=== PATIENT | male | born 1975 | race Caucasian/White ===

== ENCOUNTER 2018-10-09 09:22 | Emergency (ER) | payer OTHER ==
[~2018-10-09] VITALS: Ht 180.3 cm; Wt 102.1 kg
[~2018-10-09 09:22] MED LIST: ALBUTEROL SUL5 MG/M1 IH; ALBUTEROL2.5 MG/31 IH; AMOXICILLIN 50500 M1 PO; AMOXICILLIN 50500 MG PO; ARMOUR THYROID30 M1 PO; CARAFATE 11 GM/10 M1 PO; HORMONE THERAPY; LOPRESSOR50 PO; MEDROLDOSEPACK PO; NORCO 5-325 TA1 EACH PO; PRILOSEC 20 MG20 MG PO; TOBRAMYCIN SULFA5 ML OP; VENTOLIN HFA 1818 GM INH; ZOLOFT50 MG PO; ZPAK PO
[2018-10-09] MEDS ORDERED: CELEXA20 MG PO (09:27)
[2018-10-09 10:00] LABS: ABSOLUTE NEUTROPHILS 2.7 thou/uL (1.4-8.2); BASOPHILS 1.3 % (0.0-2.0); HEMATOCRIT 43.2 % (42.0-52.0); HEMOGLOBIN 14.8 gm/dL (14.0-18.0); LYMPHOCYTES 36.5 % (24.0-44.0); MCH 28.8 pg (26.0-34.0); MCHC 34.2 g/dL (28.0-37.0); MCV 84.2 fL (80.0-100.0); MONOCYTES 6.7 % (1.0-8.0); PLATELET COUNT 195 thou/uL (150-400); POLYS 53.5 % (36.0-66.0); RBC 5.14 mil/uL (4.50-6.00); RDW 13.1 % (10.5-14.5); WBC 5.1 thou/uL (4.0-11.0)
[2018-10-09 10:05] LABS: CALCIUM 9.2 mg/dL (8.5-10.1); CREATININE 0.9 mg/dL (0.7-1.3)
[2018-10-09 10:14] LABS: TROPONIN-I 0.07 ng/mL (<0.06)
--- NOTE | 2018-10-09 15:18 | EXE ---
[facility] [place] [address] STRESS ECHOCARDIOGRAM Name: DARIANANDRE E Room #: REG LV Garcia#: [id number] ������������� Admission: 10/09/18 ������������� Attend Phys: Discharge: ��� ������������� ��� Date of : 77 Date of Service: 10/09/18 1517 �� Report #: [id number] �������� ��������������������������������������������[id number] THIS REPORT FOR: //name// APPROVED REPORT Study performed: 10/09/2018 13:53:55 Exam: Stress Echocardiogram Indication: Chest pain Patient Location: In-Patient Stress Nurse: Sherri Saunders RN Room #: 6 Ht: 5 ft 11 in HR: 73 bpm BP: 132/82 mmHg Medical History Medical History: HTN Allergies: No known drug allergies Procedure The patient underwent an Exercise Stress Test using the Ronald Protocol. Blood pressure, heart rate, and EKG were monitored. An Echocardiogram was performed by forklift technician in four stages in quad fashion. At peak stress, four selected images were obtained and placed side by side with resting images for comparison. Stress Test Details Stress Test: Exercise stress testing was performed using a Ronald protocol. HR Resting HR: 73 bpm Max Heart Rate (APMHR): 178 bpm Max HR Achieved: 123 bpm Target HR (85% APMHR): 151 bpm % of APMHR: 69 Recovery HR: 100 bpm HR response to stress: Normal HR response to stress BP Resting BP: 132/82 mmHg Max BP: 158/80 mmHg Recovery BP: 146/80 mmHg BP response to stress: Normal blood pressure response to stress. ECG Resting ECG: Sinus Rhythm [facility] [employer] [facility] [place] [address] STRESS ECHOCARDIOGRAM Name: ANDRE FARMER Room #: REG [facility]#: [id number] ������������� Admission: 10/09/18 ������������� Attend Phys: Discharge: ��� ������������� ��� Date of : 77 Date of Service: 10/09/18 1517 �� Report #: [id number] �������� ��������������������������������������������[id number] Stress ECG: Sinus Rhythm ST Change: Normal Maximum ST Deviation: 0 mm Arrhythmia: None Recovery ECG: Sinus Rhythm Recovery ST Change: Normal Recovery ST Deviation: 0 mm Recovery Arrhythmia: None Clinical Reason for Termination: Maximal effort Stress Symptoms: Leg Fatigue Exercise duration: 8 min 56 sec Highest Stage Achieved: Stage 3: 3.4 mph at 14% grade. Exercise capacity: 10.40 METs Angina Score: None Stress ECG Conclusion Clinical: Non-ischemic ECG: Non-ischemic Agee Treadmill Score is 8.0 which is Low risk. Pre-Stress Echo The resting Echocardiogram showed normal left ventricular contractility with an estimated Ejection Fraction of about 55-60%. Post-Stress Echo The stress Echocardiogram showed normal left ventricular contractility with an estimated Ejection Fraction of about >70%. Clinical Normal augmentation of myocardial wall segments using a 17 segment model. Conclusion Clinical Response: Non-ischemic Exercise Capacity: Average Stress ECG Response: Non-ischemic Stress Echo Images: Non-ischemic The left ventricle is normal in size and wall thickness in both the rest and stress images. Normal stress echocardiogram with maximal exercise stress. Other Information Study Quality: Good [facility] [address] [address] STRESS ECHOCARDIOGRAM Name: DARIANFABYAddison Grey Room #: REG [facility].#: [id number] ������������� Admission: 10/09/18 ������������� Attend Phys: Discharge: ��� ������������� ��� Date of : 77 Date of Service: 10/09/181516 �� Report #: [id number] �������� ��������������������������������������������[id number] <Conclusion> The left ventricle is normal in size and wall thickness in both the rest and stress images. Normal stress echocardiogram with maximal exercise stress. ��������������������������������������������� <ELECTRONICALLY SIGNED> ���������������������������������������� By: Peewee Ivory MD, FACC ��������������������������������������������� 10/09/181516 16 16 Peewee Ivory MD, FACC /INF
[2018-10-09 15:43] VITALS: BP 128/87
--- NOTE | 2018-10-10 08:13 | EKG ---
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 : 1975 Requested By: Jhonatan Soliz Order Number: [id number] MD: Peewee Ivory Measurements Intervals [place] Rate: 70 P: 39 NV: 188 QRS: -18 QRSD: 87 T: 4 QT: 376 QTc: 406 Interpretive Statements Sinus rhythm Early repolarization Compared to ECG 08/26/2015 16:20:31 No significant change was found Electronically Signed On 10-10-2018 8:13:49 CDT by Peewee Ivory [email or web address] ��������������������������������������������� <ELECTRONICALLY SIGNED> ���������������������������������������� By: Peewee Ivory MD, [facility] ��������������������������������������������� 10/10/18 0813 0952 0952 Peewee Ivory MD, FACC /EPI
== END 2018-10-09 15:44 | disposition home or self-care (01) ==
LOC: ER 09:22
PROVIDERS: Emergency Medicine
DX: M79.602 Pain in left arm (principal); R07.89 Other chest pain; I10 Essential (primary) hypertension; E78.5 Hyperlipidemia, unspecified; J45.909 Unspecified asthma, uncomplicated; Z90.49 Acquired absence of other specified parts of digestive tract

== ENCOUNTER 2019-07-24 14:33 | Inpatient (IN) | payer OTHER ==
[~2019-07-24] VITALS: Ht 180.3 cm; Wt 102.1 kg
[~2019-07-24 14:33] MED LIST changes: +CELEXA20 MG PO
[2019-07-24 14:45] VITALS: BP 110/84
[2019-07-24] MEDS ORDERED: ADVAIR 100-501 EACH INH (15:26)
[2019-07-24 16:27] LABS: ABSOLUTE NEUTROPHILS 6.9 thou/uL (1.4-8.2); BASOPHILS 0.7 % (0.0-2.0); EOSINOPHILS 0.3 % (0.0-3.0); HEMATOCRIT 42.4 % (42.0-52.0); HEMOGLOBIN 14.2 gm/dL (14.0-18.0); LYMPHOCYTES 21.2 % (24.0-44.0); MCH 29.2 pg (26.0-34.0); MCHC 33.4 g/dL (28.0-37.0); MCV 87.2 fL (80.0-100.0); MONOCYTES 7.3 % (1.0-8.0); PLATELET COUNT 209 thou/uL (150-400); POLYS 70.5 % (36.0-66.0); RBC 4.86 mil/uL (4.50-6.00); RDW 13.7 % (10.5-14.5); WBC 9.8 thou/uL (4.0-11.0)
[2019-07-24 16:32] LABS: CALCIUM 8.9 mg/dL (8.5-10.1); CREATININE 0.9 mg/dL (0.7-1.3); POTASSIUM 3.6 mmol/L (3.5-5.1)
[2019-07-24 16:42] LABS: ALBUMIN 3.8 g/dL (3.4-5.0); TOTAL BILIRUBIN 0.3 mg/dL (<0.1-1.0); TOTAL PROTEIN 7.4 g/dL (6.4-8.2); TROPONIN-I 0.12 ng/mL (<0.06)
[2019-07-24 19:34] VITALS: BP 125/76
[2019-07-24 19:44] VITALS: BP 125/64
[2019-07-24 20:32] VITALS: BP 151/78
[2019-07-24 23:11] VITALS: BP 137/85
--- NOTE | 2019-07-25 03:09 | NUR ---
Admission history and assessment completed. Careplan initiated. Enhanced isolation pending COVID testing. Short of air with activity but sats normal on room air. Afebrile. Vital signs and rhythm stable. Elevated troponin, cardiology consulted.
[2019-07-25 04:00] VITALS: BP 129/77
[2019-07-25 07:03] LABS: CALCIUM 8.9 mg/dL (8.5-10.1)
[2019-07-25 07:52] VITALS: BP 126/66
--- NOTE | 2019-07-25 11:32 | EKG ---
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 Compared to ECG 10/09/2018 09:52:34 Electronically Signed On 07-25-2019 11:31:32 CDT by Virgilio Mota [email or web address] <ELECTRONICALLY SIGNED> By: Virgilio Mota MD 07/25/19 1131 0756 0756 Virgilio Mota MD /EPI
--- NOTE | 2019-07-25 11:33 | EKG ---
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 NO ischemic changes. Compared to ECG 10/09/2018 09:52:34 Electronically Signed On 07-25-2019 11:32:11 CDT by Virgilio Mota [email or web address] <ELECTRONICALLY SIGNED> By: Virgilio Mota MD 07/25/19 1132 1545 1545 Virgilio Mota MD /EPI
[2019-07-25 15:44] VITALS: BP 115/50
--- NOTE | 2019-07-25 18:23 | NUR ---
ASSUMED PATIENT CARE 0700. A/O X3. ANXIOUS. NO SOB. UP AD ALEXA. PROGRESSING TOWARD POC GOALS.
[2019-07-25 20:18] VITALS: BP 129/53
--- NOTE | 2019-07-26 04:26 | NUR ---
stated that his breathing is better but not perfect. he is wondering why? i explained that the cardiology would like to continues with working him up, after his covid test comes back. he asked if he would be allowed to refuse the stress test, he is not sure he can afford to pay for the test. He asks how much tests and procedures will cost. i explained that we do not have that information and to call his insurance company. careplan reviewed. denies pain. no coughing noted by nurse, denies coughing, or headaches.
[2019-07-26 05:31] VITALS: BP 131/70
[2019-07-26 08:16] VITALS: BP 143/60
--- NOTE | 2019-07-26 14:30 | NUR ---
PATIENT RESTING IN ROOM AT THIS TIME. ALERT ORIENTED X4. STATES HE IS FEELING BETTER. RESPIRATIONS ARE NON LABORED. PLEASANT WITH CARES. DOES NOT SEEM TO BE IN PAIN AT THIS TIME. WILL CONT WITH PLAN CARE.
[2019-07-26 16:26] VITALS: BP 135/68
[2019-07-26 20:07] VITALS: BP 134/73
--- NOTE | 2019-07-26 23:22 | NUR ---
test result back covid-19 negative. reported result to the payroll coordinator, asked her if she wants to send him home tonight. the primary had told dayshift that he could go home, 07/27/19. no further orders, payroll coordinator provider would prefer if he stayed tonight and let callie see him in the morning.
--- NOTE | 2019-07-27 00:41 | NUR ---
report called to [address] [place] [address]. he is ready for transfer. pt is aware of the negative covid 19 test and is much more calm at this time.
[2019-07-27 04:00] VITALS: BP 139/78
--- NOTE | 2019-07-27 04:04 | NUR ---
breathing easy per patient report. I encouraged him to see an tapper shank regarding his hearing deficit. he is expecting to be discharged tomorrow. he is relaxed and his anxiety is much decreased.
[2019-07-27 07:22] VITALS: BP 135/68
[2019-07-27 11:25] VITALS: BP 121/71
[2019-07-27] MEDS ORDERED: ASPIR 8181 MG PO ×2 (11:34→14:11)
--- NOTE | 2019-07-27 11:34 | NUR ---
Patient admits with SOB has hx of asthma. Per care team patient anxious to dc today to be with grandmother and assist with her care. He does not want further cardiology workup and reports in past his ins did not cover per care team. Called patient in room and no answer. Patient to f/u with planned outpatient cardiology workup. Will attempt to call patient again in room
[2019-07-27] MEDS ORDERED: PEPCID AC10 MG PO ×3 (11:35→14:27)
[2019-07-27] MEDS ORDERED: PROVENTIL HFA6.7 G1 INH ×3 (11:35→14:27)
[2019-07-27] MEDS ORDERED: PREDNISONE 20 M20 M1 PO ×3 (11:35→14:27)
[2019-07-27] MEDS ORDERED: NEBULIZER MISCELL ×3 (11:43→14:27)
[2019-07-27] MEDS ORDERED: IPRAT-ALBUT 0.5-3 ML INH ×3 (11:43→14:27)
[2019-07-27 12:14] VITALS: BP 121/71
--- NOTE | 2019-07-27 13:14 | NUR ---
Sp with patient by phone. patient reports he rec workup approx 2 years ago and heart was good. patient reports ins covered stay but still out of pocket cost of $2000. He is currently paying [facility] $50 a month and approx $600 left to pay and he does not want it to return to $2000. He reports during that time he felt it was a panic attack. He reports he went to PCP 3x with asthma and not getting better. He reports prev asthma would get better in a week. He was concerned with having COVID. He was not concerned with cardiac issues. 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 He is anxious to return home to assist with her. He feels stable to leave hospital and not concerned with cardiac. Nebulizer ordered. Verified address. Reviewed company who will deliver nebulizer no further needs.
--- NOTE | 2019-07-27 15:24 | NUR ---
PT DISCHARGE INSTRUCTIONS WERE GIVEN TO PT. ALL QUESTIONS ANSWERED. PIV AND TELE WERE PREVIOUSLY DC'D. DISCHARGE INSTRUCTIONS AND EDUCATION INFORMATION SENT WITH PT. RXS WERE ELECTRONICALLY SENT TO PHARMACY. NOTE FOR WORK WAS GIVEN.
== END 2019-07-27 14:18 | disposition home or self-care (01) | DRG 203 ==
LOC: ER 14:33 → EROBS 18:52 → 2N 18:52 → 3W 20:13 → 2N 07-27 01:05
PROVIDERS: Nurse Practitioner Family; Physician Assistant; ADMIT Hospitalist
DX: J45.901 Unspecified asthma with (acute) exacerbation (principal); R79.89 Other specified abnormal findings of blood chemistry; F41.8 Other specified anxiety disorders; Z79.899 Other long term (current) drug therapy; Z90.49 Acquired absence of other specified parts of digestive tract; Z03.818 Encounter for observation for suspected exposure to other biological agents ruled out
CPT/HCPCS: 10779; 10879

== ENCOUNTER 2019-09-02 12:13 | Emergency (ER) | payer OTHER ==
[~2019-09-02] VITALS: Ht 180.3 cm; Wt 99.8 kg
[~2019-09-02 12:13] MED LIST changes: +ADVAIR 100-501 EACH INH; +ASPIR 8181 MG PO; +IPRAT-ALBUT 0.5-3 ML INH; +NEBULIZER MISCELL; +PEPCID AC10 MG PO; +PREDNISONE 20 M20 M1 PO; +PROVENTIL HFA6.7 G1 INH
[2019-09-02 13:14] LABS: RDW 13.8 % (10.5-14.5)
[2019-09-02 13:16] LABS: ABSOLUTE NEUTROPHILS 3.7 thou/uL (1.4-8.2); EOSINOPHILS 1.2 % (0.0-3.0); HEMATOCRIT 42.3 % (42.0-52.0); HEMOGLOBIN 14.4 gm/dL (14.0-18.0); LYMPHOCYTES 25.4 % (24.0-44.0); MCH 29.3 pg (26.0-34.0); MCHC 34.1 g/dL (28.0-37.0); MCV 85.9 fL (80.0-100.0); MONOCYTES 7.4 % (1.0-8.0); PLATELET COUNT 237 thou/uL (150-400); RBC 4.93 mil/uL (4.50-6.00); WBC 5.7 thou/uL (4.0-11.0)
[2019-09-02 13:25] LABS: CALCIUM 8.9 mg/dL (8.5-10.1); POTASSIUM 3.8 mmol/L (3.5-5.1)
[2019-09-02 13:31] LABS: ALBUMIN 4.1 g/dL (3.4-5.0); TOTAL BILIRUBIN 0.4 mg/dL (<0.1-1.0); TOTAL PROTEIN 7.7 g/dL (6.4-8.2)
[2019-09-02] MEDS ORDERED: DOXYCYCLINE 10100 MG PO ×2 (15:11→15:16)
[2019-09-02] MEDS ORDERED: PREDNISONE 10 M10 M1 PO ×2 (15:11→15:16)
[2019-09-02 15:27] VITALS: BP 148/88
--- NOTE | 2019-09-03 07:52 | EKG ---
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 : 1975 Requested By: Srini Hale Order Number: [id number] MD: Peewee Ivory Measurements Intervals [place] Rate: 74 P: 39 IN: 172 QRS: -10 QRSD: 82 T: 12 QT: 374 QTc: 415 Interpretive Statements Sinus rhythm ST elev, probable normal early repol pattern Compared to ECG 07/25/2019 07:56:45 No significant changes Electronically Signed On 09-03-2019 7:51:21 CDT by Peewee Ivory [email or web address] <ELECTRONICALLY SIGNED> By: Peewee Ivory MD, FACC 09/03/19 0751 1240 1240 Peewee Ivory MD, [facility] /EPI
== END 2019-09-02 15:29 | disposition home or self-care (01) ==
LOC: ER 12:13
PROVIDERS: Physician Assistant
DX: R06.02 Shortness of breath (principal); R05 Cough; J45.909 Unspecified asthma, uncomplicated; Z79.899 Other long term (current) drug therapy